=== PATIENT | male | born 2000 | race Caucasian/White ===

== ENCOUNTER 2019-01-16 15:55 | Emergency (ER) | payer SELFPAY ==
[2019-01-16] MEDS ORDERED: ONDANSETRON HCL INJ/PF 4 MG/2 ML SDV IV ONE (16:03)
[2019-01-16] MEDS ORDERED: HYDROMORPHONE HCL INJ/PF 2 MG/ML AMPULE IV ONE ×4 (16:03→18:56)
[2019-01-16] MEDS ORDERED: DIPH/PERTUSS(ACELL)/TETANUS VAC/PF 0.5 ML SYR (>=10YO) IM ONE (16:37)
--- NOTE | 2019-01-16 16:38 | ER Document Report ---
ED General - General Chief Complaint: Foreign Body Stated Complaint: STUNG BY STINGRAY Time Seen by Provider: 01/16/19 16:07 Primary Care Provider: OLIVA MORAN MD [NO LOCAL MD] - Follow up as needed Notes: 18-year-old male in acute distress presents to the emergency department after stingray envenomation at 2:15 PM today. He did soak his hand brought in by ambulance and received 150 mg of fentanyl IV on the rig prior to arrival. Patient received an additional Dilaudid 0.5 mg IV once prior to me seeing him in the room. When I went to interview him in the room he was in severe distress and his hand was mildly edematous. There was a small laceration or puncture wound on the dorsal aspect of his right hand. I ordered another Dilaudid 0.5 mg IV 1 time and him continuing to soak the wound in hot water. I am going to order imaging of the right hand to ensure there is no retained foreign body. Unclear if tetanus is up-to-date. TRAVEL OUTSIDE OF THE [place] IN LAST 30 DAYS: No - Related Data Allergies/Adverse Reactions: clarithromycin [From Biaxin] Allergy (Mild, Verified 01/01/13 12:57) Past Medical History - Social History Smoking Status: Never Smoker Frequency of alcohol use: None Drug Abuse: None Family History: Malignancy Patient has suicidal ideation: No Patient has homicidal ideation: No Pulmonary Medical History: Reports: Hx Asthma Renal/ Medical History: Denies: Hx Peritoneal Dialysis Past Surgical History: Reports: Hx Genitourinary Surgery - circumscised - Immunizations Immunizations up to date: Yes Hx Diphtheria, Pertussis, Tetanus Vaccination: Yes Review of Systems - Review of Systems Constitutional: No symptoms reported EENT: No symptoms reported Cardiovascular: No symptoms reported Respiratory: No symptoms reported Gastrointestinal: No symptoms reported Genitourinary: No symptoms reported Male Genitourinary: No symptoms reported Musculoskeletal: No symptoms reported Skin: See HPI Hematologic/Lymphatic: No symptoms reported Neurological/Psychological: No symptoms reported Physical Exam - Vital signs Vitals: Temp Pulse Resp BP Pulse Ox 97.9 F 135 H 22 H 161/101 H 97 01/16/19 15:56 01/16/19 15:56 01/16/19 15:56 01/16/19 15:56 01/16/19 15:56 - Notes Notes: PHYSICAL EXAMINATION: Reviewed vital signs and charting by RN GENERAL: Alert, interacts well. No acute distress. HEAD: Normocephalic, atraumatic. EYES: Pupils equal, round, and reactive to light. Extraocular movements intact. ENT: Oral mucosa moist, tongue midline. NECK: Full range of motion. Supple. Trachea midline. LUNGS: Clear to auscultation bilaterally, no wheezes, rales, or rhonchi. No respiratory distress. HEART: Regular rate and rhythm. No murmur ABDOMEN: soft, non-tender. No distention. Bowel sounds present EXTREMITIES: Right hand with edema and a small puncture wound to the index finger on the dorsal aspect of the DIP, not actively bleeding, patient with extremely limited range of motion secondary to pain, 2+ radial pulse, brisk cap refill, PSYCH: Normal affect, normal mood. SKIN: Warm, dry, normal turgor. No rashes or lesions noted. Course - Re-evaluation Re-evalutation: 01/16/19 16:38 Currently unable to get a good physical exam due to inadequate pain control. I am going to provide additional analgesia. Hand x-ray ordered, tetanus ordered. Patient's vital signs are stable and there is no evidence of hemodynamic collapse. 01/16/19 18:57 Patient received a total of 2 mg of Dilaudid, Benadryl 25 mg IV, Solu-Medrol 125 mg IV, Pepcid 20 mg IV and reported significant relief. The edema has subsided. The wound was irrigated with saline spray under pressure, wound has been so for greater than 60 minutes in the ER and approximately 90 minutes total. Hand x- ray showed no evidence of any retained foreign body. Patient's pain is increasing again as well given Dilaudid 0.5 mg 1 time. I will send him home with a prescription for Percocet 53 25 and for a 5-day course of prednisone. - Vital Signs Vital signs: Temp Pulse Resp BP Pulse Ox 97.9 F 135 H 16 154/85 H 96 01/16/19 15:56 01/16/19 15:56 01/16/19 19:01 01/16/19 19:01 01/16/19 19:01 Discharge - Discharge Clinical Impression: Toxic effect of contact with stingray, accidental (unintentional), initial encounter Condition: Good Disposition: HOME, SELF-CARE Additional Instructions: You were seen in the emergency department this evening for finger a bite. There is no evidence of any retained foreign body on x-ray and aggressively treated your pain with a heavy IV narcotic medication. We also treated you for what is equivalent to an allergic reaction with Benadryl, Pepcid, and a steroid. I have given you a prescription for a 5-day course of steroids and I want you to also purchase some Benadryl and Zantac. Take Benadryl 25 mg 3 times per day and Zantac 2 times per day. Also, I have given you a short course of narcotic pain medication that will help with the pain because you will continue to have significant pain. Please continue to do hot water soaks and it as this has been proven to reduce the symptoms. I also given you a work note and I do not want you to work for the next 2 days. If you develop severe swelling, your finger turns blue or black, you develop severe shortness of breath or your throat tightens up, he develop intractable nausea or vomiting, you pass out, or any other concerning symptoms please return to the emergency department for reevaluation. Prescriptions: Oxycodone HCl/Acetaminophen [Percocet 5-325 mg Tablet] 1 tab PO Q4H PRN #15 tablet PRN Reason: RX: Prednisone [Deltasone 20 mg Tablet] 60 mg PO DAILY 5 Days #15 tablet Forms: Return to Work Referrals: OLIVA MORAN MD [NO LOCAL MD] - Follow up as needed
[2019-01-16] MEDS ORDERED: KETOROLAC TROMETHAMINE INJ/PF 30 MG/1 ML SDV IV ONE (16:52)
[2019-01-16] MEDS ORDERED: DIPHENHYDRAMINE HCL 50 MG/ML VIAL IV ONE (17:36)
[2019-01-16] MEDS ORDERED: FAMOTIDINE INJ/PF 20 MG/2 ML SDV IV ONE (17:37)
[2019-01-16] MEDS ORDERED: METHYLPREDNISOLONE INJ 125 MG/2 ML SDV IV ONE (17:38)
--- NOTE | 2019-01-16 17:40 | RADIOLOGY REPORT (SQ) ---
EXAM DESCRIPTION: HAND RIGHT 3 VIEWS COMPLETED DATE/TIME: 01/16/2019 5:12 pm REASON FOR STUDY: stingray bite COMPARISON: None. EXAM PARAMETERS: NUMBER OF VIEWS: Three views. TECHNIQUE: AP, lateral and oblique radiographic images acquired of the right hand. LIMITATIONS: None. FINDINGS: MINERALIZATION: Normal. BONES: No acute fracture or dislocation. No worrisome bone lesions. JOINTS: No effusions. SOFT TISSUES: No soft tissue swelling. No foreign body. OTHER: No other significant finding. IMPRESSION: No fracture or dislocation of the right hand. No radiopaque foreign body. TECHNICAL DOCUMENTATION: JOB ID: [id number] [employer]- All Rights Reserved Reading location - IP/workstation name: [email or web address]
[2019-01-16 19:35] VITALS: BP 154/85
== END 2019-01-16 20:00 | disposition home or self-care (01) ==
LOC: ER 15:55
DX: T63.511A Toxic effect of contact with stingray, accidental (unintentional), initial encounter (principal); X58.XXXA Exposure to other specified factors, initial encounter; Z23 Encounter for immunization; Z88.3 Allergy status to other anti-infective agents
CPT/HCPCS: 96376; 99284; 90471; 96374; 96375; 73130; 90715; J1200; J2930; J1885; J1170; J2405; S0028